=== PATIENT | female | born 1960 | race Caucasian/White ===

== ENCOUNTER → 2017-04-18 | Outpatient (CLI) | payer SELFPAY ==
[2017-04-20 15:57] LABS: HPV Genotype 16 Not Detected (NOTDET); HPV Genotype 18 Not Detected (NOTDET)
[2017-04-25 09:46] LABS: HPV High Risk Other Detected (NOTDET)
== END ==
LOC: LAB 16:51
PROVIDERS: Obstetrics & Gynecology
DX: Z12.4 Encounter for screening for malignant neoplasm of cervix (principal)
CPT/HCPCS: 87624; G0123

== ENCOUNTER → 2017-04-18 | Outpatient (CLI) | payer SELFPAY | END | disposition home or self-care (01) | LOC: PLD 07:56 → LAB SHORT 07:56 | DX: N85.8 Other specified noninflammatory disorders of uterus (principal); N95.0 Postmenopausal bleeding | CPT/HCPCS: 88305 ==

== ENCOUNTER → 2020-09-08 | Outpatient (CLI) | payer SELFPAY ==
[2020-09-09 17:11] LABS: HPV 16 Negative (Negative); HPV 18 Negative (Negative); HPV OTHER HR TYPES Positive (Negative)
== END | disposition home or self-care (01) ==
LOC: LAB SHORT 11:04
PROVIDERS: Obstetrics & Gynecology
DX: Z12.4 Encounter for screening for malignant neoplasm of cervix (principal)
CPT/HCPCS: 87624; G0123

== ENCOUNTER → 2020-09-29 | Outpatient (CLI) | payer SELFPAY | END | disposition home or self-care (01) | LOC: LAB SHORT 12:39 | DX: N95.0 Postmenopausal bleeding (principal); N84.1 Polyp of cervix uteri | CPT/HCPCS: 88305 ==

== ENCOUNTER → 2022-10-05 | Outpatient (CLI) | payer SELFPAY ==
[2022-10-10 13:08] LABS: HPV 16 Negative (Negative); HPV 18 Negative (Negative); HPV OTHER HR TYPES Positive (Negative)
== END ==
LOC: LAB 17:36 → LAB SHORT 17:36
PROVIDERS: Obstetrics & Gynecology
DX: Z12.4 Encounter for screening for malignant neoplasm of cervix (principal)
CPT/HCPCS: 87624; 87625; G0145

== ENCOUNTER 2024-09-19 09:25 | Day surgery (SDC) | payer OTHER ==
[2024-09-19] VITALS (23 sets, daily range): BP systolic 88–126; BP diastolic 61–99
[~2024-09-19] VITALS: Ht 165.1 cm; Wt 83.8 kg
--- NOTE | 2024-09-19 11:20 | NUR ---
Ambulatory in Day Surgery. History, Chart, Medications and Allergies reviewed before start of procedure. Lungs clear T/O to Auscultation. Patient confirms NPO status and agrees with scheduled surgery. Pre-Op teaching done. Pt verbalizes understanding. Patient States Post-Procedure ride home has been arranged.
--- NOTE | 2024-09-19 11:44 | NUR ---
09/19/24 1144 Jayla Vanegas CONFIRMED AND REVIEWED H&P, MEDCICATIONS, ALLERGIES, MEDICAL HISTORY, RESPIRATORY HISTORY, VITAL SIGNS, 3-LEAD EKG, CONSENTS, AND PHYSICIAN ORDERS. PATIENT CONFIRMS NPO STATUS AND AGREES WITH SCHEDULED PROCEDURE. MONITOR INTACT WITH CONTINUOUS PULSE OXIMETRY, CAPNOGRAPHY, 3-LEAD EKG, INTERMITTENT BP. SUPPLEMENTAL O2 TO BE TITRATED THROUGHOUT PROCEDURE TO MAINTAIN O2 SATURATION ABOVE 90%. PATIENT DETERMINED TO BE ASA APPROPRIATE FOR PROPOFOL SEDATION PRIOR TO START OF PROCEDURE BY DR. HODGES
[2024-09-19] MEDS ORDERED: Midazolam HCl 1MG / ML 2ML Vial ONE (11:49)
--- NOTE | 2024-09-19 12:32 | NUR ---
REPORT RECEIVED FROM NILDA CASTANEDA. VSS. PT ON RA. PT A&OX4. PT ABLE TO REPOSITION SELF IN BED. PT REQUESTING PO FLUIDS AND TOLERATING THEM WELL. PT DENIES PAIN, NAUSEA OR OTHER DISCOMFORTS.
[2024-09-19] MEDS ORDERED: Atropine Sulfate 0.4 MG/ML 20ML VIAL IV ONE (20:09)
== END 2024-09-19 12:50 | disposition home or self-care (01) ==
LOC: ORSCMMR 09:25 → ORD 10:30 → ORSCMMR 10:30
PROVIDERS: Internal Medicine Gastroenterology
PROC: 0DBN8ZX Excision of Sigmoid Colon, Via Natural or Artificial Opening Endoscopic, Diagnostic (ICD-10-PCS; principal; 2024-09-19 10:30)
DX: Z12.11 Encounter for screening for malignant neoplasm of colon (principal); K63.5 Polyp of colon
CPT/HCPCS: 88305; J2250; J2704; J7120